=== PATIENT | male | born 1955 | race Caucasian/White ===

== ENCOUNTER 2020-03-25 07:33 | Outpatient (CLI) | payer MEDICARE ==
--- NOTE | 2020-03-25 08:05 | ULT ---
EXAM: US Abdominal Aorta DATE: 03/25/2020 12:00 AM INDICATION: Screening evaluation for abdominal aortic aneurysm COMPARISON: None. FINDING: The proximal abdominal aorta is mildly aneurysmal measuring 3.5 cm in its greatest AP dimen david. The mid abdominal aorta measured 2.2 cm in its greatest AP dimension and 3.2 cm in its greatest mediolateral dimension. The distal aorta measured 2.3 cm in its greatest AP dimension and 2 cm in its greatest mediolateral dimensions. Both iliac arteries measured 1.4 cm in its greatest AP dimension. Antegrade flow is seen at the level all arterial segments. IMPRESSION: 1. Mild aneurysmal dilatation of the proximal abdominal aorta measuring up to 3.5 cm. 2. Mild aneurysmal dilatation of the mid abdominal aorta in the medial lateral dimension of 3.2 cm. 3. Normal caliber of the distal abdominal aorta measuring up to 2.3 cm. 4. 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
== END 2020-03-25 07:34 | disposition home or self-care (01) ==
LOC: SCSULT 07:33
PROVIDERS: ATTEND Physician Assistant
DX: Z13.6 Encounter for screening for cardiovascular disorders (principal); I71.4 Abdominal aortic aneurysm, without rupture
CPT/HCPCS: 76775

== ENCOUNTER 2023-04-09 09:33 | Outpatient (CLI) | payer OTHER ==
[2023-04-09 11:09] LABS: #Basophils 0.1 10x3/uL (0.0-0.2); #Eosinphils 0.3 10x3/uL (0.0-0.5); #Monocytes 0.3 10x3/uL (0.0-1.1); #Neutrophils 4.1 10x3/uL (1.5-8.4); %Basophils 0.9 % (0.0-2.0); %Eosinophils 5.1 % (0.0-6.0); %Lymphocytes 18.4 % (18.0-47.0); %Monocytes 5.8 % (0.0-10.0); %Neutrophils 69.3 % (40.0-75.0); Mean Corpuscular HGB CONC 33.5 g/dL (32.0-36.0); Mean Corpuscular Hemoglobin 31.5 pg (27.0-33.0); Mean Corpuscular Volume 94.1 fl (81.2-95.1); Mean Platelet Volume 9.3 fl (7.4-10.4); Platelet Count 298 10x3/uL (150-450); RBC Distribution Width 12.9 % (11.5-14.5); Red Blood Cell (RBC) Count 4.76 10x6/uL (4.32-5.72); White Blood Cell (WBC) Count 5.9 10x3/uL (3.5-10.5)
[2023-04-09 11:35] LABS: ALT (SGPT) 20 U/L (8-55); AST (SGOT) 25 U/L (5-34); Albumin 4.5 g/dL (3.4-4.8); Alkaline Phosphatase 85 U/L (40-110); Anion Gap 14 mmol/L (10-20); BUN (Urea Nitrogen) 14 mg/dL (8.4-25.7); Bilirubin, Total 0.6 mg/dL (0.2-1.2); Calc. Creatinine Clearance 0 mL/min (70-130); Calcium 9.7 mg/dL (7.8-10.44); Carbon Dioxide 25 mmol/L (23-31); Chloride 106 mmol/L (98-107); Estimated GFR 90; Globulin 2.3 g/dL (2.4-3.5); Glucose 90 mg/dL (80-115); Potassium 4.6 mmol/L (3.5-5.1); Protein, Total 6.8 g/dL (5.8-8.1); Sodium 140 mmol/L (136-145)
== END 2023-04-09 09:34 | disposition home or self-care (01) ==
LOC: LABBT 09:33
PROVIDERS: ATTEND Surgery
DX: Z01.812 Encounter for preprocedural laboratory examination (principal); C44.91 Basal cell carcinoma of skin, unspecified; K42.9 Umbilical hernia without obstruction or gangrene
CPT/HCPCS: 80053; 85025; 93005; 93010

== ENCOUNTER 2023-04-14 07:58 | Day surgery (SDC) | payer OTHER ==
[2023-04-09 10:49] VITALS: BMI 28.0
[2023-04-14] MEDS ORDERED: Lidocaine 2% PF 5 ML VIAL ONE (11:19)
[2023-04-14] MEDS ORDERED: Bupivacaine HCl 0.5%/Epinephrine 1:200,000/PF 30 ml Vial ONE (11:19)
[2023-04-14] MEDS ORDERED: fentaNYL PF 100 MCG/2 ML SYRINGE ONE (11:21)
[2023-04-14] MEDS ORDERED: Lidocaine 1% PF 5 ML VIAL ONE (11:34)
[2023-04-14] MEDS ORDERED: Dexamethasone 20 MG/5 ML VIAL ONE (11:34)
[2023-04-14] MEDS ORDERED: Ondansetron PF 4 MG/2 ML Vial ONE (11:34)
[2023-04-14] MEDS ORDERED: PROPOFOL 200 MG/20 ML VIAL ONE (11:34)
[2023-04-14] MEDS ORDERED: Ketorolac Tromethamine 30 MG/ML VIAL ONE (12:38)
[2023-04-14] MEDS ORDERED: fentaNYL 50 mcg/mL 1 mL Vial ONE (13:01)
== END 2023-04-14 14:20 | disposition home or self-care (01) ==
LOC: SDC 07:58
PROVIDERS: ATTEND Surgery
PROC: 0WQF0ZZ Repair Abdominal Wall, Open Approach (ICD-10-PCS; principal; 2023-04-14)
PROC: 0HB5XZZ Excision of Chest Skin, External Approach (ICD-10-PCS; 2023-04-14)
DX: K42.9 Umbilical hernia without obstruction or gangrene (principal); L85.8 Other specified epidermal thickening; F41.8 Other specified anxiety disorders; Z90.49 Acquired absence of other specified parts of digestive tract; Z79.82 Long term (current) use of aspirin; Z87.891 Personal history of nicotine dependence; Z88.8 Allergy status to other drugs, medicaments and biological substances; Z79.899 Other long term (current) drug therapy
CPT/HCPCS: 11402; 49593; C1781; J3010; 88305; J1100; J1885; J2001; J2405; J2704